=== PATIENT | female | born 1975 | race Two or more races ===

== ENCOUNTER → 2017-04-12 | Outpatient (CLI) | payer OTHER ==
[~2017-04-12] MED LIST: CYCL-259 PO
== END ==
LOC: STAR 11:08
PROVIDERS: ATTEND Surgery
DX: Z02.9 Encounter for administrative examinations, unspecified (principal)

== ENCOUNTER 2017-04-22 09:14 | Day surgery (SDC) | payer OTHER ==
[2017-04-12 12:41] VITALS: BP 127/89
[~2017-04-22] VITALS: Ht 165.1 cm; Wt 94.9 kg
[~2017-04-22 09:14] MED LIST changes: +BUPIVACAINE/PF 0.5% ONE; +EPINEPHRINE 1 MG/ML, 1ML ONE
[2017-04-22] MEDS ORDERED: LACTATED RINGERS 1,000 ML IV SCH (10:05)
[2017-04-22 10:14] LABS: HCG UR OBC PASS
[2017-04-22] MEDS ORDERED: LIDOCAINE 1%, 2ML ONE (10:14)
[2017-04-22] MEDS ORDERED: LIDOCAINE 1%, 2ML SQ PRN (10:30)
[2017-04-22] MEDS ORDERED: PROPOFOL 10 MG/ML, 20ML ONE (10:33)
[2017-04-22] MEDS ORDERED: DEXAMETHASONE 4 MG/ML, 1ML ONE (10:33)
[2017-04-22] MEDS ORDERED: ONDANSETRON 2MG/ML, 2ML ONE ×2 (10:33→13:36)
[2017-04-22] MEDS ORDERED: SUCCINYLCHOLINE 20 MG/ML, 10ML ONE (10:33)
[2017-04-22] MEDS ORDERED: CEFAZOLIN 1,000 MG ONE (10:33)
[2017-04-22] MEDS ORDERED: FENTANYL PF 100 MCG/2ML ONE ×3 (10:36→12:32)
[2017-04-22] MEDS ORDERED: MIDAZOLAM 1 MG/ML, 2ML ONE (10:36)
[2017-04-22] MEDS ORDERED: REMIFENTANIL 2 MG ONE (11:01)
[2017-04-22] MEDS ORDERED: LABETALOL 5MG/ML, 20ML IV PRN (12:00)
[2017-04-22] MEDS ORDERED: HYDROcodone/APAP 7.5-325MG/15ML UDC PO PRN (12:00)
[2017-04-22] MEDS ORDERED: MEPERIDINE/PF 25MG/0.5ML IVPush PRN (12:00)
[2017-04-22] MEDS ORDERED: hydrALAzine 20 MG/ML, 1ML IV PRN (12:00)
[2017-04-22] MEDS ORDERED: MIDAZOLAM 1 MG/ML, 2ML IV PRN (12:00)
[2017-04-22] MEDS ORDERED: PROMETHAZINE 25 MG/ML, 1ML IV PRN (12:00)
[2017-04-22] MEDS ORDERED: EPHEDRINE 50 MG/ML, 1ML IVPush PRN (12:00)
[2017-04-22] MEDS ORDERED: ACETAMINOPHEN 325 MG TABLET PO PRN (12:00)
[2017-04-22] MEDS ORDERED: ONDANSETRON 2MG/ML, 2ML IVPush PRN (12:00)
[2017-04-22] MEDS ORDERED: OXYcodone 5 MG/5 ML ORAL.SOL UDC ONE ×2 (12:32→12:50)
[2017-04-22] MEDS ORDERED: ACETAMINOPHEN 650 MG/20.3 ML UDC ONE (12:32)
[2017-04-22] MEDS: FENTANYL PF 100 MCG/2ML IV PRN ×2 (12:33→12:42)
[2017-04-22] MEDS: OXYcodone 5 MG/5 ML ORAL.SOL UDC PO PRN ×2 (12:35→12:51)
[2017-04-22] MEDS ORDERED: HYDROmorphone 2 MG/ML, 1ML ONE (12:43)
[2017-04-22] MEDS: HYDROmorphone 1 MG/ML, 1ML IV PRN ×4 (12:45→13:08)
[2017-04-22] MEDS ORDERED: KETOROLAC 30 MG/1 ML ONE (13:18)
[2017-04-22] MEDS ORDERED: MEPERIDINE/PF 25MG/0.5ML ONE (13:24)
[2017-04-22] MEDS ORDERED: KETOROLAC 30 MG/1 ML IVPush PRN (13:30)
[2017-04-22] MEDS ORDERED: HYDROcodone/APAP 5/325 TABLET ONE (17:42)
== END 2017-04-22 18:00 | disposition home or self-care (01) ==
LOC: OUT 09:14
PROVIDERS: ATTEND Surgery
DX: C73 Malignant neoplasm of thyroid gland (principal); E78.00 Pure hypercholesterolemia, unspecified; Z98.890 Other specified postprocedural states; Z91.013 Allergy to seafood
CPT/HCPCS: 60220; 81025; 88304; 88307; J0330; J0690; J1100; J1170; J1885; J2175; J2250; J2405; J2704; J3010; J3490; J7120; J0171; C1760

== ENCOUNTER 2017-05-07 12:47 | Emergency (ER) | payer OTHER ==
[~2017-05-07] VITALS: Ht 165.1 cm; Wt 94.6 kg
[~2017-05-07 12:47] MED LIST changes: -BUPIVACAINE/PF 0.5% ONE; -EPINEPHRINE 1 MG/ML, 1ML ONE
[2017-05-07] MEDS ORDERED: SODIUM CHLORIDE 0.9% 1,000ML IVBOLUS ONE (14:00)
[2017-05-07] MEDS ORDERED: SODIUM CHLORIDE FLUSH 10ML SYR IVF ONE (14:00)
[2017-05-07 14:22] LABS: HEMATOCRIT 43.9 % (34.6-47.8); HEMOGLOBIN 14.8 g/dL (11.7-16.4); WHITE BLOOD COUNT 13.3 x10^3/uL (3.4-10)
[2017-05-07 14:25] LABS: ASPARTATE AMINO TRANSFERASE 10 U/L (15-37); BLOOD UREA NITROGEN 12 mg/dL (7-18)
[2017-05-07 14:31] LABS: IS PT STATUS REG ER OR PRE ER? YES
[2017-05-07] MEDS ORDERED: OMNIPAQUE 350 MG/ML, 100ML BOTTLE ONE (15:15)
[2017-05-07] MEDS ORDERED: KETOROLAC 30 MG/1 ML ONE (15:57)
[2017-05-07] MEDS ORDERED: KETOROLAC 30 MG/1 ML IVPush ONE (16:00)
[2017-05-07 16:02] VITALS: BP 132/77
== END 2017-05-07 16:35 | disposition home or self-care (01) ==
LOC: ED 15:34
DX: R07.89 Other chest pain (principal); S29.012A Strain of muscle and tendon of back wall of thorax, initial encounter; X58.XXXA Exposure to other specified factors, initial encounter; Y93.89 Activity, other specified; Y92.89 Other specified places as the place of occurrence of the external cause; Y99.8 Other external cause status; Z85.850 Personal history of malignant neoplasm of thyroid
CPT/HCPCS: 36415; 71020; 71275; 80053; 83690; 84484; 84703; 85025; 85379; 93005; 96361; 96374; 99285; J1885; J7030; Q9967

== ENCOUNTER 2017-10-14 14:48 | Emergency (ER) | payer OTHER ==
[~2017-10-14] VITALS: Ht 165.1 cm; Wt 96.7 kg
[2017-10-14] MEDS ORDERED: SODIUM CHLORIDE FLUSH 10ML SYR IVF ONE (16:00)
[2017-10-14] MEDS ORDERED: ONDANSETRON 2MG/ML, 2ML IVPush ONE (16:00)
[2017-10-14] MEDS ORDERED: MORPHINE SULFATE 4 MG/ML, 1ML IVPush PRN (16:00)
[2017-10-14] MEDS ORDERED: SODIUM CHLORIDE 0.9% 1,000ML IVBOLUS ONE (16:00)
[2017-10-14] MEDS ORDERED: KETOROLAC 30 MG/1 ML ONE (16:26)
[2017-10-14] MEDS ORDERED: MORPHINE SULFATE 4 MG/ML, 1ML ONE (16:26)
[2017-10-14] MEDS ORDERED: ONDANSETRON 2MG/ML, 2ML ONE (16:26)
[2017-10-14] MEDS ORDERED: KETOROLAC 30 MG/1 ML IVPush ONE (16:30)
[2017-10-14 16:31] LABS: BASOPHILS # (AUTO) 0.01 x10^3/uL (0-0.1); BASOPHILS % (AUTO) 0 % (0-1); EOSINOPHILS % (AUTO) 8 % (1-7); LYMPHOCYTES # (AUTO) 1.86 x10^3/uL (1-3.4); LYMPHOCYTES % (AUTO) 16 % (22-44); MD NO; MEAN CORPUSCULAR HEMOGLOBIN 28.8 pg (27.0-34.8); MEAN CORPUSCULAR HGB CONC 33.1 g/dL (32.4-35.8); MEAN CORPUSCULAR VOLUME 86.9 fL (80-100); MONOCYTES # (AUTO) 0.62 x10^3/uL (0.2-0.8); MONOCYTES % (AUTO) 5 % (2-9); NEUTROPHILS # (AUTO) 8.17 x10^3/uL (1.8-6.8); NEUTROPHILS % (AUTO) 71 % (42-75); PLATELET COUNT 401 x10^3/uL (130-400); RED BLOOD COUNT 5.07 x10^6/uL (3.82-5.3); RED CELL DISTRIBUTION WIDTH 12.4 % (9.6-15.2)
[2017-10-14 16:42] LABS: ALBUMIN 3.4 g/dL (3.4-5.0); ANION GAP 7 mmol/L (5-15); CALCIUM 8.7 mg/dL (8.5-10.1); CHLORIDE 107 mmol/L (98-107); CREATININE 0.69 mg/dL (0.55-1.02)
[2017-10-14 16:46] LABS: TROPONIN I < 0.015 ng/mL (0.000-0.045)
[2017-10-14] MEDS ORDERED: OMNIPAQUE 350 MG/ML, 100ML BOTTLE ONE (18:03)
[2017-10-14 19:09] VITALS: BP 111/65
== END 2017-10-14 19:11 | disposition home or self-care (01) ==
LOC: ED 18:01
DX: R07.2 Precordial pain (principal); R11.0 Nausea
CPT/HCPCS: 36415; 71045; 71275; 80048; 82040; 83880; 84484; 85025; 93005; 96361; 96374; 96375; 99285; J1885; J2405; J7030; Q9967

== ENCOUNTER 2018-05-20 07:39 | Emergency (ER) | payer OTHER ==
[~2018-05-20] VITALS: Ht 165.1 cm; Wt 97.0 kg
[2018-05-20 08:10] LABS: MICROSCOPIC INDICATED
[2018-05-20 08:19] LABS: CULTURE INDICATED? YES
[2018-05-20 08:41] LABS: BASOPHILS # (AUTO) 0.02 x10^3/uL (0-0.1); BASOPHILS % (AUTO) 0 % (0-1); EOSINOPHILS # (AUTO) 0.58 x10^3/uL (0-0.4); EOSINOPHILS % (AUTO) 6 % (1-7); LYMPHOCYTES # (AUTO) 1.59 x10^3/uL (1-3.4); LYMPHOCYTES % (AUTO) 17 % (22-44); MD NO; MEAN CORPUSCULAR HEMOGLOBIN 29.3 pg (27.0-34.8); MEAN CORPUSCULAR HGB CONC 33.7 g/dL (32.4-35.8); MONOCYTES % (AUTO) 4 % (2-9); NEUTROPHILS # (AUTO) 6.53 x10^3/uL (1.8-6.8); NEUTROPHILS % (AUTO) 72 % (42-75); PLATELET COUNT 411 x10^3/uL (130-400); RED BLOOD COUNT 5.16 x10^6/uL (3.82-5.3); RED CELL DISTRIBUTION WIDTH 13.4 % (9.6-15.2)
[2018-05-20 08:53] LABS: ALBUMIN 3.6 g/dL (3.4-5.0); ANION GAP 8 mmol/L (5-15); CALCIUM 8.9 mg/dL (8.5-10.1); CHLORIDE 107 mmol/L (98-107)
[2018-05-20 08:57] LABS: ALANINE AMINOTRANSFERASE 23 U/L (12-78); ALKALINE PHOSPHATASE 121 U/L (45-117); BILIRUBIN,TOTAL 0.3 mg/dL (0.2-1.0); CREATININE 0.69 mg/dL (0.55-1.02); TOTAL PROTEIN 7.8 g/dL (6.4-8.2)
[2018-05-20] MEDS ORDERED: SODIUM CHLORIDE FLUSH 10ML SYR IVF ONE (09:00)
[2018-05-20 11:38] VITALS: BP 148/74
== END 2018-05-20 11:40 | disposition home or self-care (01) ==
LOC: ED 09:36
DX: K58.9 Irritable bowel syndrome, unspecified (principal); N83.291 Other ovarian cyst, right side; R30.0 Dysuria; Z90.710 Acquired absence of both cervix and uterus
CPT/HCPCS: 36415; 74021; 74177; 80053; 81001; 83690; 85025; 87086; 99285

== ENCOUNTER 2019-03-26 08:45 | Outpatient (CLI) | payer OTHER ==
[2019-03-26 10:01] LABS: MICROSCOPIC AUTO
[2019-03-26 10:02] LABS: CULTURE INDICATED? YES
[2019-03-26] MEDS ORDERED: DICY20TA3 PO (10:16)
[2019-03-26] MEDS ORDERED: Vitamin D PO (10:16)
[2019-03-26] MEDS ORDERED: DEXL60CA2 PO (10:16)
[2019-03-26] MEDS ORDERED: HYDR-3237 PO (10:16)
[2019-03-26] MEDS ORDERED: LEVO50TA5 PO (10:16)
[2019-03-30] MEDS ORDERED: OXYcodone 5 MG/5 ML ORAL.SOL UDC PO PRN (10:00)
[2019-03-30] MEDS ORDERED: ONDANSETRON 2MG/ML, 2ML IVPush PRN (10:00)
[2019-03-30] MEDS ORDERED: HYDROmorphone 1 MG/ML, 1ML INJ IV PRN (10:00)
[2019-03-30] MEDS ORDERED: MEPERIDINE/PF 25MG/0.5ML IVPush PRN (10:00)
[2019-03-30] MEDS ORDERED: MIDAZOLAM 1 MG/ML, 2ML IV PRN (10:00)
[2019-03-30] MEDS ORDERED: PLEASE ENTER HEIGHT AND WEIGHT MC SCH (10:00)
[2019-03-30] MEDS ORDERED: LABETALOL 5MG/ML, 20ML IV PRN (10:00)
[2019-03-30] MEDS ORDERED: FENTANYL PF 100 MCG/2ML IV PRN (10:00)
[2019-03-30] MEDS ORDERED: PSYL1PAC9 PO (13:51)
== END 2019-03-26 23:59 | disposition home or self-care (01) ==
LOC: STAR 08:45
PROVIDERS: ATTEND Obstetrics & Gynecology Female Pelvic Medicine and Reconstructive Surgery
DX: Z01.818 Encounter for other preprocedural examination (principal); N94.6 Dysmenorrhea, unspecified; N81.6 Rectocele; N81.10 Cystocele, unspecified; R10.2 Pelvic and perineal pain; R32 Unspecified urinary incontinence
CPT/HCPCS: 81001; 87077; 87086; 87186

== ENCOUNTER 2019-03-30 12:23 | Observation (INO) | payer OTHER ==
[~2019-03-30] VITALS: Ht 165.1 cm; Wt 95.2 kg
[2019-03-31 07:10] VITALS: BP 120/71
== END 2019-03-31 07:40 | disposition home or self-care (01) ==
LOC: OR 12:23 → 4NOR 20:30 → OUT 23:21 → 4NOR 23:22
PROVIDERS: ADMIT Obstetrics & Gynecology Female Pelvic Medicine and Reconstructive Surgery; ATTEND Obstetrics & Gynecology Female Pelvic Medicine and Reconstructive Surgery
DX: N94.10 Unspecified dyspareunia (principal); R19.09 Other intra-abdominal and pelvic swelling, mass and lump; E03.9 Hypothyroidism, unspecified; R10.2 Pelvic and perineal pain; Z79.899 Other long term (current) drug therapy
CPT/HCPCS: 51992; 57265; 58661; 87070; 87075; 87077; 87205; 88112; 88305; 96365; 96367; 96375; 96376; C1771; G0378; J0330; J0690; J1100; J1170; J1580; J1885; J2175; J2250; J2405; J2704; J3010; J3490; S0077; 87186

== ENCOUNTER → 2020-05-06 | Outpatient (CLI) | payer OTHER ==
[~2020-05-06] MED LIST changes: +DEXL60CA2 PO; +DICY20TA3 PO; +HYDR-3237 PO; +LACT1CAP35 PO; +LEVO50TA5 PO; +OMEP20TA62 PO; +PSYL1PAC9 PO; +Vitamin D PO
== END | disposition home or self-care (01) ==
LOC: STAR 09:45
PROVIDERS: ATTEND Thoracic Surgery (Cardiothoracic Vascular Surgery)
DX: Z01.812 Encounter for preprocedural laboratory examination (principal); Z20.828 Contact with and (suspected) exposure to other viral communicable diseases
CPT/HCPCS: 36415; 87635

== ENCOUNTER 2020-05-11 08:25 | Day surgery (SDC) | payer OTHER ==
[~2020-05-11] VITALS: Ht 165.1 cm; Wt 105.3 kg
[~2020-05-11 08:25] MED LIST changes: +BUPIVACAINE/PF 0.5% ONE; +EPINEPHRINE 1 MG/ML, 1ML ONE
[2020-05-11] MEDS ORDERED: MIDAZOLAM 1 MG/ML, 2ML ONE (08:57)
[2020-05-11] MEDS ORDERED: FENTANYL PF 250 MCG/5ML ONE ×2 (08:57→10:16)
[2020-05-11] MEDS ORDERED: CEFAZOLIN 1,000 MG ONE (09:01)
[2020-05-11] MEDS ORDERED: NEOSTIGMINE 1 MG/ML, 10ML ONE (09:01)
[2020-05-11] MEDS ORDERED: GLYCOPYRROLATE 0.2MG/1ML, 5ML ONE (09:01)
[2020-05-11] MEDS ORDERED: SUCCINYLCHOLINE 20 MG/ML, 10ML ONE (09:01)
[2020-05-11] MEDS ORDERED: ONDANSETRON 2MG/ML, 2ML ONE (09:01)
[2020-05-11] MEDS ORDERED: DEXAMETHASONE 4 MG/ML, 1ML ONE (09:01)
[2020-05-11] MEDS ORDERED: PROPOFOL 10 MG/ML, 20ML ONE (09:01)
[2020-05-11] MEDS ORDERED: ROCURONIUM 10MG/ML,5ML ONE (09:01)
[2020-05-11 09:03] VITALS: BP 137/85
[2020-05-11] MEDS ORDERED: LACTATED RINGERS 1,000 ML IV SCH ×2 (09:07→10:49)
[2020-05-11] MEDS ORDERED: HYDROmorphone 1 MG/ML, 1ML INJ IVPush PRN (09:30)
[2020-05-11] MEDS ORDERED: PROMETHAZINE 25 MG/ML, 1ML IVPush PRN (09:30)
[2020-05-11] MEDS ORDERED: CHLORHEXIDINE 15 ML UDC MM ONE (09:30)
[2020-05-11] MEDS ORDERED: hydrALAzine 20 MG/ML, 1ML IV PRN (09:30)
[2020-05-11] MEDS ORDERED: HALOPERIDOL 5 MG/ML IV PRN (09:30)
[2020-05-11] MEDS ORDERED: LABETALOL 5MG/ML, 20ML IV PRN (09:30)
[2020-05-11] MEDS ORDERED: ACETAMINOPHEN 325 MG TABLET PO PRN (09:30)
[2020-05-11] MEDS ORDERED: MEPERIDINE/PF 25MG/0.5ML IVPush PRN (09:30)
[2020-05-11] MEDS ORDERED: morphine SULFATE 10 MG/ML, 1ML IVPush PRN ×2 (09:30→11:00)
[2020-05-11] MEDS ORDERED: SUGAMMADEX 200 MG/2 ML IVPush ONE (10:49)
[2020-05-11] MEDS: ALBUTEROL HFA 90 MCG/SPRAY INH PRN ×2 (11:00→11:47)
[2020-05-11] MEDS ORDERED: ALBUTEROL HFA 90 MCG/SPRAY ONE (11:00)
[2020-05-11] MEDS ORDERED: HYDROcodone/APAP 7.5-325MG/15ML UDC PO PRN ×2 (11:00)
[2020-05-11] MEDS ORDERED: ONDANSETRON 2MG/ML, 2ML IVPush PRN (11:00)
[2020-05-11] MEDS ORDERED: KETOROLAC 30 MG/1 ML IVPush PRN (11:00)
[2020-05-11] MEDS ORDERED: ALBUTEROL HFA 90 MCG/SPRAY INH PRN (11:00)
[2020-05-11] MEDS ORDERED: FENTANYL PF 100 MCG/2ML ONE (11:15)
[2020-05-11] MEDS: FENTANYL PF 100 MCG/2ML IV PRN ×2 (11:16→11:26)
[2020-05-11] MEDS ORDERED: OXYcodone 5 MG/5 ML ORAL.SOL UDC ONE (11:30)
[2020-05-11] MEDS ORDERED: ACETAMINOPHEN 650 MG/20.3 ML UDC ONE (11:30)
[2020-05-11] MEDS: OXYcodone 5 MG/5 ML ORAL.SOL UDC PO PRN ×2 (11:33→13:31)
== END 2020-05-11 14:35 | disposition home or self-care (01) ==
LOC: OR 08:25 → OUT 14:35
PROVIDERS: ATTEND Thoracic Surgery (Cardiothoracic Vascular Surgery)
DX: K21.9 Gastro-esophageal reflux disease without esophagitis (principal); K44.9 Diaphragmatic hernia without obstruction or gangrene; E03.9 Hypothyroidism, unspecified; E78.00 Pure hypercholesterolemia, unspecified; F17.210 Nicotine dependence, cigarettes, uncomplicated; Z91.013 Allergy to seafood; Z85.850 Personal history of malignant neoplasm of thyroid; Z98.890 Other specified postprocedural states; Z79.899 Other long term (current) drug therapy; Z79.2 Long term (current) use of antibiotics
CPT/HCPCS: 43280; J0171; J0330; J0690; J1100; J2250; J2405; J2704; J2710; J3010; J7120

== ENCOUNTER 2020-10-12 08:38 | Day surgery (SDC) | payer OTHER ==
[~2020-10-12] VITALS: Ht 167.6 cm; Wt 102.3 kg
[~2020-10-12 08:38] MED LIST changes: +ATOR20TA37 PO; -BUPIVACAINE/PF 0.5% ONE; +CHOL10003 PO; -CYCL-259 PO; +CYCL10TA2 PO; -DICY20TA3 PO; +DICY20TA4 PO; -EPINEPHRINE 1 MG/ML, 1ML ONE; +OMEP40CA42 PO; +PSYL0.5215 PO
[2020-10-12] MEDS ORDERED: CHLORHEXIDINE 15 ML UDC MM ONE (09:00)
[2020-10-12 09:02] VITALS: BP 121/83
[2020-10-12] MEDS ORDERED: CHLORHEXIDINE 15 ML UDC ONE (09:10)
[2020-10-12] MEDS ORDERED: LACTATED RINGERS 1,000 ML IV SCH ×2 (09:30→11:30)
[2020-10-12] MEDS ORDERED: SUCCINYLCHOLINE 20 MG/ML, 10ML ONE (10:38)
[2020-10-12] MEDS ORDERED: LIDOCAINE-MPF 2% ,5ML ONE ×2 (10:38)
[2020-10-12] MEDS ORDERED: PROPOFOL 10 MG/ML, 20ML ONE (10:38)
[2020-10-12] MEDS ORDERED: FENTANYL PF 100 MCG/2ML ONE (10:38)
[2020-10-12] MEDS ORDERED: ONDANSETRON 2MG/ML, 2ML ONE (10:44)
[2020-10-12] MEDS ORDERED: HYDROmorphone 1 MG/ML, 1ML INJ IVPush PRN (11:00)
[2020-10-12] MEDS ORDERED: PROMETHAZINE 25 MG/ML, 1ML IVPush PRN (11:00)
[2020-10-12] MEDS ORDERED: METOCLOPRAMIDE 5 MG/ML, 2ML IVPush PRN (11:00)
[2020-10-12] MEDS ORDERED: FENTANYL PF 100 MCG/2ML IV PRN (11:00)
[2020-10-12] MEDS ORDERED: ONDANSETRON 2MG/ML, 2ML IVPush PRN ×2 (11:00→11:30)
[2020-10-12] MEDS ORDERED: morphine SULFATE 10 MG/ML, 1ML IVPush PRN (11:30)
[2020-10-12] MEDS ORDERED: HYDROcodone/APAP 7.5-325MG/15ML UDC PO PRN (11:30)
== END 2020-10-12 13:30 | disposition home or self-care (01) ==
LOC: OUT 08:38
PROVIDERS: ATTEND Thoracic Surgery (Cardiothoracic Vascular Surgery)
DX: R13.10 Dysphagia, unspecified (principal); K21.9 Gastro-esophageal reflux disease without esophagitis; E78.5 Hyperlipidemia, unspecified; Z20.822 Contact with and (suspected) exposure to COVID-19; Z79.890 Hormone replacement therapy; Z79.899 Other long term (current) drug therapy; Z85.850 Personal history of malignant neoplasm of thyroid; Z98.890 Other specified postprocedural states; Z83.49 Family history of other endocrine, nutritional and metabolic diseases
CPT/HCPCS: 43220; C1725; J0330; J2405; J2704; J3010; J7120; U0003

== ENCOUNTER 2021-03-29 11:02 | Inpatient (IN) | payer OTHER ==
[~2021-03-29] VITALS: Ht 167.6 cm; Wt 112.7 kg
[~2021-03-29 11:02] MED LIST changes: -OMEP40CA42 PO; +OMEP40CA8 PO
--- NOTE | 2021-03-29 11:30 | NUR ---
PT AMBULATORY TO & FROM [facility] W/OUT INCIDENT; GAIT STEADY. VOIDED SPECIMEN PROVIDED: HAZY YELLOW. PT C/O EPIGASTRIC PAIN RADIATING TO RT MID-BACK. 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 PT STATES PAIN STARTED LAST NOC. NO PAIN MED TAKEN. + NAUSEA, CONSTIPATION. LAST BM: TODAY. PT'S SPOUSE IN ROOM.
[2021-03-29] MEDS ORDERED: ROSU10TA2 PO (11:35)
--- NOTE | 2021-03-29 11:48 | NUR ---
IV ATTEMPTED X2; UNSUCCESSFUL; WILL SEEK ASSISTANCE.
[2021-03-29] MEDS ORDERED: ONDANSETRON 2MG/ML, 2ML ONE (11:53)
[2021-03-29] MEDS ORDERED: MORPHINE SULFATE 4 MG/ML, 1ML ONE (11:54)
--- NOTE | 2021-03-29 11:59 | NUR ---
PIV INITIATED PER AMNA GALLEGOS; 20G LT MID-FA. U/S IN PROGRESS.
[2021-03-29] MEDS ORDERED: SODIUM CHLORIDE FLUSH 10ML SYR IVF ONE (12:00)
[2021-03-29] MEDS ORDERED: MORPHINE SULFATE 4 MG/ML, 1ML IVPush PRN (12:00)
[2021-03-29] MEDS ORDERED: ONDANSETRON 2MG/ML, 2ML IVPush ONE (12:00)
--- NOTE | 2021-03-29 12:03 | NUR ---
ZOFRAN & MORPHINE GIVEN PER eMAR. U/S COMPLETED. SIDE RAIL UP X2, CALL LIGHT W/IN REACH. SPOUSE IN ROOM.
[2021-03-29 12:37] LABS: BASOPHILS % (AUTO) 1 % (0-1); EOSINOPHILS % (AUTO) 5 % (1-7); LYMPHOCYTES % (AUTO) 20 % (22-44); MEAN CORPUSCULAR HEMOGLOBIN 29.3 pg (27.0-34.8); MEAN CORPUSCULAR HGB CONC 33.8 g/dL (32.4-35.8); MEAN PLATELET VOLUME 7.2 fL (7.4-10.4); MONOCYTES % (AUTO) 5 % (2-9); NEUTROPHILS % (AUTO) 69 % (42-75); PLATELET COUNT 366 x10^3/uL (130-400); RED BLOOD COUNT 5.12 x10^6/uL (3.82-5.3); RED CELL DISTRIBUTION WIDTH 14.3 % (9.6-15.2)
[2021-03-29 12:44] LABS: ALANINE AMINOTRANSFERASE 27 U/L (12-78); ALBUMIN 3.6 g/dL (3.4-5.0); ANION GAP 4 mmol/L (5-15); CALCIUM 9.2 mg/dL (8.5-10.1); CHLORIDE 107 mmol/L (98-107); CREATININE 0.68 mg/dL (0.55-1.02)
[2021-03-29 12:47] LABS: ALKALINE PHOSPHATASE 135 U/L (45-117); BILIRUBIN,TOTAL 0.3 mg/dL (0.2-1.0); TOTAL PROTEIN 8.1 g/dL (6.4-8.2)
[2021-03-29] MEDS ORDERED: DOCUSATE 100 MG CAPSULE PO PRN (15:00)
[2021-03-29] MEDS ORDERED: ACETAMINOPHEN 325 MG TABLET PO PRN (15:00)
[2021-03-29] MEDS: ENOXAPARIN 40 MG/0.4 ML SQ SCH (15:00)
[2021-03-29] MEDS ORDERED: ONDANSETRON 2MG/ML, 2ML IVPush PRN (15:00)
[2021-03-29] MEDS ORDERED: MELATONIN 5 MG TABLET PO PRN (15:00)
[2021-03-29] MEDS: morphine SULFATE 10 MG/ML, 1ML IVPush PRN (16:00)
[2021-03-29] MEDS: PANTOPRAZOLE 40 MG IV IVPush SCH ×2 (16:19→17:31)
[2021-03-29 16:27] VITALS: BP 107/73
[2021-03-29] MEDS: MAALOX/HYOSCYAMINE/LIDOCAINE 45 ML BTL PO SCH ×2 (17:30→22:00)
[2021-03-29 17:43] LABS: INTERNATIONAL NORMALIZED RATIO 0.99 (0.93-1.1); PROTHROMBIN TIME 10.6 Seconds (9.6-11.5)
[2021-03-29 19:40] VITALS: BP 107/62
[2021-03-29] MEDS: SODIUM CHLORIDE FLUSH 10ML SYR IVF SCH (22:00)
[2021-03-30 01:09] VITALS: BP 97/64
[2021-03-30 05:37] LABS: CHOL/HDL RATIO 4.2; LDL/HDL RATIO 2.7 (0.5-3.0)
[2021-03-30] MEDS ORDERED: PANTOPRAZOLE 40 MG IV IVPush SCH (07:30)
[2021-03-30] MEDS: PANTOPRAZOLE 40 MG IV IVPush SCH (08:53)
[2021-03-30] MEDS: LEVOTHYROXINE 50 MCG TABLET PO SCH (08:53)
[2021-03-30 08:55] VITALS: BP 102/65
[2021-03-30] MEDS: SODIUM CHLORIDE FLUSH 10ML SYR IVF SCH ×2 (08:56→21:46)
[2021-03-30] MEDS: MAALOX/HYOSCYAMINE/LIDOCAINE 45 ML BTL PO SCH ×3 (08:56→21:46)
[2021-03-30] MEDS ORDERED: LACTATED RINGERS 1,000 ML IVBOLUS ONE (09:30)
[2021-03-30] MEDS: morphine SULFATE 10 MG/ML, 1ML IVPush PRN (11:33)
[2021-03-30] MEDS: LACTATED RINGERS 1,000 ML IV SCH (12:00)
[2021-03-30 14:17] VITALS: BP 96/64
[2021-03-30] MEDS: ENOXAPARIN 40 MG/0.4 ML SQ SCH (15:00)
[2021-03-30] MEDS ORDERED: CHLORHEXIDINE 15 ML UDC ONE (16:20)
[2021-03-30] MEDS ORDERED: PROPOFOL 50 ML ONE (17:20)
[2021-03-30] MEDS ORDERED: MIDAZOLAM 1 MG/ML, 2ML ONE (17:20)
[2021-03-30] MEDS ORDERED: FENTANYL PF 250 MCG/5ML ONE (17:21)
[2021-03-30] MEDS ORDERED: EPINEPHRINE 1 MG/ML, 1ML ONE (17:26)
[2021-03-30] MEDS ORDERED: BUPIVACAINE/PF 0.5% ONE (17:26)
[2021-03-30] MEDS ORDERED: CEFOTETAN 2 GM ONE (17:33)
[2021-03-30] MEDS ORDERED: ROCURONIUM 10 MG/ML,10ML ONE (17:56)
[2021-03-30] MEDS ORDERED: ONDANSETRON 2MG/ML, 2ML ONE ×2 (17:56)
[2021-03-30] MEDS ORDERED: GLYCOPYRROLATE 0.2MG/1ML, 5ML ONE (17:56)
[2021-03-30] MEDS ORDERED: KETOROLAC 30 MG/1 ML ONE (17:56)
[2021-03-30] MEDS ORDERED: NEOSTIGMINE 1 MG/ML, 10ML ONE (17:56)
[2021-03-30] MEDS ORDERED: hydrALAzine 20 MG/ML, 1ML IV PRN (18:00)
[2021-03-30] MEDS ORDERED: MEPERIDINE/PF 25MG/0.5ML IVPush PRN (18:00)
[2021-03-30] MEDS ORDERED: OXYcodone 5 MG/5 ML ORAL.SOL UDC PO PRN (18:00)
[2021-03-30] MEDS ORDERED: HALOPERIDOL 5 MG/ML IV PRN (18:00)
[2021-03-30] MEDS ORDERED: ACETAMINOPHEN 325 MG TABLET PO PRN (18:00)
[2021-03-30] MEDS ORDERED: PROMETHAZINE 25 MG/ML, 1ML IVPush PRN (18:00)
[2021-03-30] MEDS ORDERED: morphine SULFATE 10 MG/ML, 1ML IVPush PRN (18:00)
[2021-03-30] MEDS ORDERED: FENTANYL PF 100 MCG/2ML IV PRN (18:00)
[2021-03-30] MEDS ORDERED: LABETALOL 5MG/ML, 20ML IV PRN (18:00)
[2021-03-30] MEDS ORDERED: FENTANYL PF 100 MCG/2ML ONE ×2 (18:18→18:30)
[2021-03-30] MEDS ORDERED: ACETAMINOPHEN 650 MG/20.3 ML UDC ONE (18:56)
[2021-03-30] MEDS ORDERED: HYDROmorphone 1 MG/ML, 1ML INJ ONE (18:57)
[2021-03-30] MEDS ORDERED: OXYcodone 5 MG/5 ML ORAL.SOL UDC ONE (18:57)
[2021-03-30] MEDS ORDERED: HYDROcodone/APAP 5/325 TABLET PO PRN (19:00)
[2021-03-30] MEDS: HYDROmorphone 1 MG/ML, 1ML INJ IVPush PRN ×2 (19:00→19:15)
[2021-03-30] MEDS ORDERED: MEPERIDINE/PF 25MG/ML,1ML ONE (19:28)
[2021-03-30] MEDS ORDERED: METHOCARBAMOL 1,000 MG in DEXTROSE 5% 100 ML IV ONE (20:00)
[2021-03-31] MEDS ORDERED: ONDANSETRON 2MG/ML, 2ML IVPush PRN (00:30)
[2021-03-31] MEDS ORDERED: PROMETHAZINE 25 MG/ML, 1ML IM PRN (00:30)
[2021-03-31 00:45] VITALS: BP 143/89
[2021-03-31] MEDS: LACTATED RINGERS 1,000 ML IV SCH (01:56)
[2021-03-31 07:54] VITALS: BP 120/77
[2021-03-31] MEDS: MAALOX/HYOSCYAMINE/LIDOCAINE 45 ML BTL PO SCH (09:00)
[2021-03-31] MEDS: SODIUM CHLORIDE FLUSH 10ML SYR IVF SCH (09:00)
[2021-03-31] MEDS: LEVOTHYROXINE 50 MCG TABLET PO SCH (09:18)
[2021-03-31] MEDS: morphine SULFATE 10 MG/ML, 1ML IVPush PRN ×2 (09:20→13:33)
[2021-03-31] MEDS ORDERED: PANTOPRAZOLE 40 MG IV IVPush SCH (10:00)
[2021-03-31] MEDS ORDERED: ACET325T26 PO (12:27)
[2021-03-31] MEDS ORDERED: HYDR-2214 PO (12:27)
[2021-03-31 12:54] VITALS: BP 117/70
== END 2021-03-31 14:11 | disposition home or self-care (01) | DRG 419 ==
LOC: ED 11:32 → INTOOBSV 14:07 → OBSVTOIN 14:07 → EDIP 14:07 → 3N 15:25
PROVIDERS: ADMIT Hospitalist; ATTEND Hospitalist
PROC: 0FT44ZZ Resection of Gallbladder, Percutaneous Endoscopic Approach (ICD-10-PCS; principal; 2021-03-30 17:30)
DX: K80.00 Calculus of gallbladder with acute cholecystitis without obstruction (principal); E78.5 Hyperlipidemia, unspecified; Z20.822 Contact with and (suspected) exposure to COVID-19; R74.8 Abnormal levels of other serum enzymes; K27.9 Peptic ulcer, site unspecified, unspecified as acute or chronic, without hemorrhage or perforation; E55.9 Vitamin D deficiency, unspecified; E03.9 Hypothyroidism, unspecified; Z85.850 Personal history of malignant neoplasm of thyroid; Z87.11 Personal history of peptic ulcer disease; Z90.710 Acquired absence of both cervix and uterus
CPT/HCPCS: 36415; S0020; 71045; 76700; 80053; 80061; 83690; 84443; 85025; 85610; 87635; 88304; 93005; C1729; G0378; J0171; J1170; J1885; J2175; J2250; J2405; J2550; J2704; J2710; J3010; C9113; J2270; J2800; J7120